=== PATIENT | female | born 1970 | race Caucasian/White ===

== ENCOUNTER → 2019-11-18 11:44 | Outpatient (CLI) | payer OTHER, SELFPAY ==
--- NOTE | 2019-11-18 11:52 | US_ITS ---
STUDY: RENAL ULTRASOUND - COMPLETE REASON FOR EXAM: Female, 49 years old. HEMATURIA, UTI''S TECHNIQUE: Ultrasound evaluation of the kidneys was performed with real-time and static anand-scale imaging. COMPARISON: None. FINDINGS: 3 mm gallbladder polyp is of doubtful clinical significance. RIGHT KIDNEY: Normal location of the right kidney, which is normal in size. The right kidney measures 9.3 x 4.9 x 3.2 cm. There is a normal cortex of the right kidney. The renal cortex measures 1.1 cm. There is no right renal mass or cyst. There are no right renal calculi. There is an extra-renal pelvis of the right kidney. There is no distention of the renal calyces. DISTAL RIGHT URETER: There is non-visualization of the distal right ureter. There is no demonstrated right ureterovesical junction calculus. There is no demonstrated right ureteral jet. LEFT KIDNEY: Normal location of the left kidney, which is normal in size. The left kidney measures 9.2 x 4.2 x 3.9 cm. There is a normal cortex of the left kidney. The renal cortex measures 1.1 cm. There is no left renal mass or cyst. There are no left renal calculi. There is an extra-renal pelvis of the left kidney. There is no distention of the renal calyces. DISTAL LEFT URETER: There is non-visualization of the distal left ureter. There is no demonstrated left ureterovesical junction calculus. There is no demonstrated left ureteral jet. BLADDER: The distended urinary bladder has a volume of 427 ml. The empty urinary bladder has a volume of 25 ml. There is a normal wall thickness of the distended urinary bladder. There is no demonstrated mass within the urinary bladder. There are no demonstrated bladder calculi. US/Kidney and Bladder IMPRESSION: 1. No shadowing calculi or rosemary hydronephrosis. Electronically Signed: Blayne Saldivar MD ([facility]) at 18:34 EST , Service support ,
== END ==
PROVIDERS: Referring Provider Urology; Visit Provider Urology
DX: N39.0 Urinary tract infection, site not specified (principal); R31.9 Hematuria, unspecified
CPT/HCPCS: 76770

== ENCOUNTER → 2022-05-13 | Outpatient (CLI) | payer SELFPAY, OTHER ==
--- NOTE | 2022-05-13 15:02 | US_ITS ---
EXAM: US PELVIS TRANSABDOMINAL, COMPLETE CLINICAL INDICATION: ABNL BLEEDING -- S/P HYSTERECTOMY TECHNIQUE: Transabdominal pelvic ultrasound was performed with grayscale and color Doppler imaging. This report was created using [employer] report [employer] technology. COMPARISON: None. FINDINGS: UTERUS/CERVIX: Uterus surgically absent. Anteverted. There is no uterine mass. Normal endometrial stripe thickness. RIGHT OVARY: Not identified. LEFT OVARY: Not identified. FREE FLUID: No adnexal mass or free pelvic fluid. BLADDER: Unremarkable as visualized. Wall is normal thickness for degree of distention. US/Pelvic (Non ) IMPRESSION: Empty pelvis. Electronically Signed: Tod Kim MD at 17:06 EDT ,
== END | disposition home or self-care (01) ==
PROVIDERS: Referring Provider Urology; Visit Provider Urology
DX: N93.9 Abnormal uterine and vaginal bleeding, unspecified (principal)
CPT/HCPCS: 76856